=== PATIENT | female | born 1945 | race Caucasian/White ===

== ENCOUNTER 2018-01-07 13:55 | Outpatient (CLI) | payer MEDICARE | END 2018-01-07 13:56 | disposition home or self-care (01) | LOC: BICMAMMO 13:55 | PROVIDERS: ATTEND Obstetrics & Gynecology | DX: Z12.31 Encounter for screening mammogram for malignant neoplasm of breast (principal) | CPT/HCPCS: 77063; 77067 ==

== ENCOUNTER 2019-01-09 14:05 | Outpatient (CLI) | payer MEDICARE, OTHER ==
--- NOTE | 2019-01-09 15:08 | MMO ---
Bilateral MAMMO Bilat Screen [facility]. CLINICAL HISTORY: Patient is 73 years old and is seen for screening. The patient has no family history of breast cancer. The patient has no personal history of cancer. The patient has a history of right Excisional Biopsy in 1986 - benign. VIEWS: The views performed were: bilateral craniocaudal with tomosynthesis and bilateral mediolateral oblique with tomosynthesis. FILMS COMPARED: The present examination has been compared to prior imaging studies performed at [facility] on 12/11/2013, 12/13/2014, 01/01/2016, 01/04/2017 and 01/07/2018. MAMMOGRAM FINDINGS: The breasts are heterogeneously dense, which could obscure a lesion on mammography. There are stable benign appearing calcifications seen in both breasts. There are no suspicious masses, suspicious calcifications, or new areas of architectural distortion. IMPRESSION: THERE IS NO MAMMOGRAPHIC EVIDENCE OF MALIGNANCY. A ROUTINE FOLLOW-UP MAMMOGRAM IN 1 YEAR IS RECOMMENDED. THE RESULTS OF THIS EXAM WERE SENT TO THE PATIENT. ACR BI-RADS Category 2 - Benign finding MAMMOGRAPHY NOTE: 1. A negative mammogram report should not delay a biopsy if a dominant of clinically suspicious mass is present. 2. Approximately 10% to 15% of breast cancers are not detected by mammography. 3. Adenosis and dense breasts may obscure an underlying neoplasm.
== END 2019-01-09 14:06 | disposition home or self-care (01) ==
LOC: BICMAMMO 14:05
PROVIDERS: ATTEND Obstetrics & Gynecology
DX: Z12.31 Encounter for screening mammogram for malignant neoplasm of breast (principal)
CPT/HCPCS: 77063; 77067

== ENCOUNTER 2020-01-19 10:12 | Outpatient (CLI) | payer MEDICARE, OTHER ==
--- NOTE | 2020-01-19 10:50 | MMO ---
Bilateral MAMMO Bilat Screen [facility]. CLINICAL HISTORY: Patient is 74 years old and is seen for screening. The patient has no family history of breast cancer. The patient has no personal history of cancer. The patient has a history of right Excisional Biopsy in 1986 - benign. VIEWS: The views performed were: bilateral craniocaudal with tomosynthesis and bilateral mediolateral oblique with tomosynthesis. FILMS COMPARED: The present examination has been compared to prior imaging studies performed at [facility] on 01/01/2016, 01/04/2017, 01/07/2018 and 01/09/2019. This study has been interpreted with the assistance of computer-aided detection. MAMMOGRAM FINDINGS: The breasts are heterogeneously dense, which could obscure a lesion on mammography. Benign calcifications are noted bilaterally. There are no suspicious masses, suspicious calcifications, or new areas of architectural distortion. IMPRESSION: THERE IS NO MAMMOGRAPHIC EVIDENCE OF MALIGNANCY. A ROUTINE FOLLOW-UP MAMMOGRAM IN 1 YEAR IS RECOMMENDED. THE RESULTS OF THIS EXAM WERE SENT TO THE PATIENT. ACR BI-RADS Category 2 - Benign finding MAMMOGRAPHY NOTE: 1. A negative mammogram report should not delay a biopsy if a dominant of clinically suspicious mass is present. 2. Approximately 10% to 15% of breast cancers are not detected by mammography. 3. Adenosis and dense breasts may obscure an underlying neoplasm. Reported by: ALEKSEY KAT MD Electonically Signed: [id number]
== END 2020-01-19 10:13 | disposition home or self-care (01) ==
LOC: BICMAMMO 10:12
PROVIDERS: ATTEND Obstetrics & Gynecology
DX: Z12.31 Encounter for screening mammogram for malignant neoplasm of breast (principal); Z91.89 Other specified personal risk factors, not elsewhere classified
CPT/HCPCS: 77063; 77067

== ENCOUNTER 2020-12-25 16:35 | Inpatient (IN) | payer MEDICARE, OTHER ==
[2020-12-25 20:15] LABS: Anion Gap 16 mmol/L (10-20); BUN (Urea Nitrogen) 39 mg/dL (9.8-20.1); Calc. Creatinine Clearance 0 mL/min (70-130); Calcium 10.6 mg/dL (7.8-10.44); Carbon Dioxide 17 mmol/L (23-31); Chloride 110 mmol/L (98-107); Glucose 67 mg/dL (83-110); Sodium 136 mmol/L (136-145)
[2020-12-25 20:19] LABS: Potassium 6.6 mmol/L (3.5-5.1)
[2020-12-25 21:14] VITALS: BMI 29.0
[2020-12-25] MEDS ORDERED: Dextrose 5% in Water 1,000 ML IV PRN (21:15)
[2020-12-25] MEDS ORDERED: Insulin Regular 300 UNITS/3 ML VIAL IVP SCH (21:15)
[2020-12-25] MEDS ORDERED: Furosemide 40 MG/4 ML VIAL SLOW IVP SCH (21:15)
[2020-12-25] MEDS ORDERED: Dextrose 10% in Water 1,000 ML IV SCH ×2 (21:15→21:22)
[2020-12-25] MEDS ORDERED: Dextrose 50% Abboject 50 ML SYRINGE SLOW IVP PRN (21:15)
[2020-12-26] MEDS ORDERED: Calcium Gluconate 4.6 MEQ in Sodium Chloride 0.9% 100 ML IVPB SCH (01:30)
[2020-12-26 01:43] LABS: Potassium 6.5 mmol/L (3.5-5.1)
[2020-12-26] MEDS ORDERED: Insulin Regular 300 UNITS/3 ML VIAL IVP SCH (02:45)
[2020-12-26] MEDS ORDERED: Albuterol Sulfate 2.5 mg/3 ml Neb NEB ONE (03:00)
[2020-12-26 04:24] LABS: SARS-CoV-2 PCR by NAA Not Detected (NotDetected)
[2020-12-26] MEDS ORDERED: ASCORBIC ACID PO SCH (09:00)
[2020-12-26] MEDS ORDERED: CRANBERRY PO SCH (09:00)
[2020-12-26] MEDS ORDERED: GLUCOSAMINE HCL 500 MG PO SCH (09:00)
[2020-12-26] MEDS: Carvedilol 25 MG TAB PO SCH ×2 (09:11→23:57)
[2020-12-26] MEDS: Calcium Carbonate 600 MG + Vit D TAB PO SCH (09:11)
[2020-12-26] MEDS: Gabapentin 300 MG CAP PO SCH ×2 (09:11→23:57)
[2020-12-26] MEDS: Folic Acid 1 MG TAB PO SCH (09:11)
[2020-12-26] MEDS: Ferrous Sulfate 325 MG TAB PO SCH (09:11)
[2020-12-26] MEDS: Multivitamin W/ Minerals 1 TAB PO SCH (09:12)
[2020-12-26] MEDS: Ascorbic Acid 500 mg Chewable Tablet PO SCH (09:12)
[2020-12-26] MEDS: Loratadine 10 MG TAB PO SCH (09:12)
[2020-12-26] MEDS: Icosapent Ethyl 1 GM CAPSULE PO SCH ×2 (09:14→23:57)
[2020-12-26] MEDS ORDERED: Sodium Bicarbonate 2.5 MEQ/5 ML VIAL IV SCH (09:45)
[2020-12-26 10:07] LABS: #Eosinphils 0.2 thou/uL (0.0-0.7); #Lymphocytes 2.1 thou/uL (1.20-3.40); #Monocytes 0.6 thou/uL (0.11-0.59); #Neutrophils 4.5 thou/uL (1.40-6.50); %Basophils 0.4 % (0.0-1.0); %Eosinophils 3.1 % (0.0-10.0); %Lymphocytes 28.2 % (21.0-51.0); %Monocytes 8.6 % (0.0-10.0); %Neutrophils 59.6 % (42.0-75.0); Hemoglobin 11.5 g/dL (12.0-16.0); Mean Corpuscular HGB CONC 33.7 g/dL (32.0-36.0); Mean Corpuscular Hemoglobin 33.2 pg (27.0-31.0); Mean Corpuscular Volume 98.4 fL (78.0-98.0); Mean Platelet Volume 7.3 fL (7.4-10.4); Platelet Count 216 thou/uL (130-400); RBC Distribution Width 11.9 % (11.5-14.5); Red Blood Cell (RBC) Count 3.47 mill/uL (4.20-5.40); White Blood Cell (WBC) Count 7.5 thou/uL (4.8-10.8)
[2020-12-26 10:34] LABS: Anion Gap 13 mmol/L (10-20); BUN (Urea Nitrogen) 39 mg/dL (9.8-20.1); Calc. Creatinine Clearance 31 mL/min (70-130); Calcium 10.5 mg/dL (7.8-10.44); Carbon Dioxide 19 mmol/L (23-31); Chloride 109 mmol/L (98-107); Glucose 103 mg/dL (83-110); Sodium 134 mmol/L (136-145)
[2020-12-26 10:42] LABS: Potassium 6.8 mmol/L (3.5-5.1)
[2020-12-26] MEDS: Sodium Bicarbonate 150 MEQ in Dextrose 5% in Water 1,000 ML IV SCH ×2 (11:40→23:45)
[2020-12-26 15:25] LABS: Anion Gap 13 mmol/L (10-20); BUN (Urea Nitrogen) 39 mg/dL (9.8-20.1); Calc. Creatinine Clearance 33 mL/min (70-130); Calcium 9.7 mg/dL (7.8-10.44); Carbon Dioxide 20 mmol/L (23-31); Chloride 106 mmol/L (98-107); Glucose 127 mg/dL (83-110); Potassium 6.4 mmol/L (3.5-5.1); Sodium 133 mmol/L (136-145)
[2020-12-26] MEDS ORDERED: Lidocaine 1% (PF) 30 ML VIAL ONE (19:14)
[2020-12-26] MEDS ORDERED: Atorvastatin Calcium 10 MG TAB PO SCH (21:00)
[2020-12-26] MEDS ORDERED: Atorvastatin Calcium 20 MG TAB PO SCH (21:00)
[2020-12-26 23:56] LABS: HBSAg Index 0.28 S/CO (0-0.99); Hep B Surf Ag Non-Reactive S/CO (NonReactive)
[2020-12-27] MEDS: Ascorbic Acid 500 mg Chewable Tablet PO SCH (08:27)
[2020-12-27] MEDS: Ferrous Sulfate 325 MG TAB PO SCH (08:27)
[2020-12-27] MEDS: Folic Acid 1 MG TAB PO SCH (08:27)
[2020-12-27] MEDS: Carvedilol 25 MG TAB PO SCH (08:27)
[2020-12-27] MEDS: Calcium Carbonate 600 MG + Vit D TAB PO SCH (08:27)
[2020-12-27] MEDS: Gabapentin 300 MG CAP PO SCH (08:27)
[2020-12-27] MEDS: Multivitamin W/ Minerals 1 TAB PO SCH (08:28)
[2020-12-27] MEDS: Loratadine 10 MG TAB PO SCH (08:28)
[2020-12-27 08:46] LABS: #Basophils 0.1 thou/uL (0.0-0.2); #Eosinphils 0.3 thou/uL (0.0-0.7); #Neutrophils 6.2 thou/uL (1.40-6.50); %Basophils 0.5 % (0.0-1.0); %Eosinophils 2.7 % (0.0-10.0); %Monocytes 10.3 % (0.0-10.0); %Neutrophils 65.5 % (42.0-75.0); Hemoglobin 11.3 g/dL (12.0-16.0); Mean Corpuscular HGB CONC 34.2 g/dL (32.0-36.0); Mean Corpuscular Hemoglobin 33.3 pg (27.0-31.0); Mean Corpuscular Volume 97.3 fL (78.0-98.0); Mean Platelet Volume 7.2 fL (7.4-10.4); Platelet Count 205 thou/uL (130-400); RBC Distribution Width 11.9 % (11.5-14.5); White Blood Cell (WBC) Count 9.5 thou/uL (4.8-10.8)
[2020-12-27 08:58] LABS: Anion Gap 16 mmol/L (10-20); BUN (Urea Nitrogen) 19 mg/dL (9.8-20.1); Calc. Creatinine Clearance 36 mL/min (70-130); Carbon Dioxide 26 mmol/L (23-31); Chloride 101 mmol/L (98-107); Glucose 140 mg/dL (83-110); Potassium 4.9 mmol/L (3.5-5.1); Sodium 138 mmol/L (136-145)
[2020-12-27] MEDS: Icosapent Ethyl 1 GM CAPSULE PO SCH (09:15)
[2020-12-27] MEDS ORDERED: Acetaminophen 325 MG/10.15 ML UDCUP PO PRN (10:58)
[2020-12-27] MEDS ORDERED: Acetaminophen 650 MG/20.3 ML UDCUP PO PRN (11:07)
[2020-12-27] MEDS ORDERED: Acetaminophen 650 MG/20.3 ML UDCUP PO SCH (11:15)
[2020-12-27] MEDS ORDERED: HumaLOG 300 UNITS/3 ML VIAL SC PRN (11:30)
[2020-12-27 15:53] VITALS: BP 158/74; TEMP 97.8
== END 2020-12-27 18:07 | disposition home or self-care (01) | DRG 641 ==
LOC: 2NO 16:35
PROVIDERS: ADMIT Student in an Organized Health Care Education/Training Program; ATTEND Internal Medicine
PROC: 5A1D70Z Performance of Urinary Filtration, Intermittent, Less than 6 Hours Per Day (ICD-10-PCS; principal; 2020-12-26)
PROC: 06HY33Z Insertion of Infusion Device into Lower Vein, Percutaneous Approach (ICD-10-PCS; 2020-12-26)
DX: E87.5 Hyperkalemia (principal); N18.4 Chronic kidney disease, stage 4 (severe); N17.9 Acute kidney failure, unspecified; E87.1 Hypo-osmolality and hyponatremia; E78.5 Hyperlipidemia, unspecified; I12.9 Hypertensive chronic kidney disease with stage 1 through stage 4 chronic kidney disease, or unspecified chronic kidney disease; E11.22 Type 2 diabetes mellitus with diabetic chronic kidney disease; E78.2 Mixed hyperlipidemia; M10.9 Gout, unspecified; E66.9 Obesity, unspecified; K21.9 Gastro-esophageal reflux disease without esophagitis; T50.0X5A Adverse effect of mineralocorticoids and their antagonists, initial encounter; I25.10 Atherosclerotic heart disease of native coronary artery without angina pectoris; T36.8X5A Adverse effect of other systemic antibiotics, initial encounter; E87.2 Acidosis; Z79.899 Other long term (current) drug therapy; Z82.49 Family history of ischemic heart disease and other diseases of the circulatory system; Z98.49 Cataract extraction status, unspecified eye; Z68.29 Body mass index [BMI] 29.0-29.9, adult; Z88.5 Allergy status to narcotic agent; Z79.84 Long term (current) use of oral hypoglycemic drugs; Z90.710 Acquired absence of both cervix and uterus; Z90.49 Acquired absence of other specified parts of digestive tract
CPT/HCPCS: 36415; 36416; 70450; 80048; 80053; 80061; 83036; 85025; 87340; 87635; 90935; 93005; 93010; G0257; J1815; J1940; J2001; J3490; J7070; U0003; U0005

== ENCOUNTER 2021-01-21 15:27 | Outpatient (CLI) | payer MEDICARE, OTHER | END 2021-01-21 15:28 | disposition home or self-care (01) | LOC: BICMAMMO 15:27 | PROVIDERS: ATTEND Obstetrics & Gynecology | DX: Z12.31 Encounter for screening mammogram for malignant neoplasm of breast (principal); Z91.89 Other specified personal risk factors, not elsewhere classified | CPT/HCPCS: 77063; 77067 ==

== ENCOUNTER 2022-01-23 14:05 | Outpatient (CLI) | payer MEDICARE, OTHER | END 2022-01-23 14:06 | disposition home or self-care (01) | LOC: BICMAMMO 14:05 | PROVIDERS: ATTEND Internal Medicine | DX: Z12.31 Encounter for screening mammogram for malignant neoplasm of breast (principal) | CPT/HCPCS: 77063; 77067 ==

== ENCOUNTER 2023-05-06 14:31 | Outpatient (CLI) | payer MEDICARE, OTHER | END 2023-05-06 14:32 | disposition home or self-care (01) | LOC: BICMAMMO 14:31 | PROVIDERS: ATTEND Obstetrics & Gynecology | DX: Z12.31 Encounter for screening mammogram for malignant neoplasm of breast (principal); Z91.89 Other specified personal risk factors, not elsewhere classified | CPT/HCPCS: 77063; 77067 ==

== ENCOUNTER 2024-09-22 18:11 | Emergency (ER) | payer MEDICARE, OTHER ==
[2024-09-22 19:36] LABS: Bacteria/HPF 2+ HPF (None Seen); Bilirubin Negative (Negative); Blood, Urine Negative (Negative); CAUTI Indications for Culture Alt mental st,lethar; Clarity Clear (Clear); Glucose, Urine (Dipstick) 50 mg/dL (Negative); Ketone, Urine Negative (Negative); Leukocyte 250 Leu/uL (Negative); Nitrite Negative (Negative); Protein, Urine (Dipstick) Negative (Neg-Trace); RBC/HPF 0-3 HPF (0-3); Specific Gravity, Urine 1.008 (1.002-1.036); Squamous Epithelial None Seen HPF (0-3); Urobilinogen Normal mg/dL (Less than 2); WBC/HPF 0-3 HPF (0-3); pH, Urine 6.5 (5.0-9.0)
[2024-09-22 19:37] LABS: Urine Culture Reflex No No
[2024-09-22 20:00] LABS: #Basophils Less than 0.03 10x3/uL (0.0-0.2); %Basophils 0.2 % (0.0-1.0); %Eosinophils 3.3 % (0.0-10.0); %Lymphocytes 25.9 % (21.0-51.0); %Monocytes 12.6 % (0.0-10.0); %Neutrophils 57.6 % (42.0-75.0); Hematocrit 25.9 % (36.0-47.0); Hemoglobin 8.5 g/dL (12.0-16.0); Mean Corpuscular HGB CONC 32.8 g/dL (32.0-36.0); Mean Corpuscular Hemoglobin 32.3 pg (27.0-31.0); Mean Corpuscular Volume 98.5 fL (78.0-98.0); Mean Platelet Volume 10.3 fL (7.4-10.4); Platelet Count 154 10x3/uL (130-400); RBC Distribution Width 14.5 % (11.5-14.5); Red Blood Cell (RBC) Count 2.63 mill/uL (4.20-5.40)
[2024-09-22 20:17] LABS: ALT (SGPT) 26 U/L (8-55); AST (SGOT) 26 U/L (5-34); Albumin 3.6 g/dL (3.4-4.8); Alkaline Phosphatase 125 U/L (40-110); Anion Gap 14 mmol/L (10-20); BUN (Urea Nitrogen) 59 mg/dL (9.8-20.1); Bilirubin, Total 0.3 mg/dL (0.2-1.2); Calc. Creatinine Clearance 0 mL/min (70-130); Calcium 9.8 mg/dL (7.8-10.44); Carbon Dioxide 24 mmol/L (23-31); Chloride 108 mmol/L (98-107); Estimated GFR 17; Glucose 85 mg/dL (83-110); Potassium 4.7 mmol/L (3.5-5.1); Protein, Total 6.6 g/dL (5.8-8.1); Sodium 141 mmol/L (136-145)
[2024-09-22 20:21] LABS: Troponin I Less than 0.010 ng/mL (< 0.028)
== END 2024-09-22 21:05 | disposition home or self-care (01) ==
LOC: ERS 18:11
DX: R42 Dizziness and giddiness (principal); D64.9 Anemia, unspecified; I12.9 Hypertensive chronic kidney disease with stage 1 through stage 4 chronic kidney disease, or unspecified chronic kidney disease; E11.22 Type 2 diabetes mellitus with diabetic chronic kidney disease; N18.9 Chronic kidney disease, unspecified; N17.9 Acute kidney failure, unspecified; E78.00 Pure hypercholesterolemia, unspecified; K21.9 Gastro-esophageal reflux disease without esophagitis; Z55.6 Problems related to health literacy; Z79.82 Long term (current) use of aspirin; Z79.899 Other long term (current) drug therapy
CPT/HCPCS: 36415; 71045; 80053; 81001; 83605; 83880; 84484; 85025; 93005; 94760

== ENCOUNTER 2025-05-11 14:04 | Outpatient (CLI) | payer MEDICARE, OTHER | END 2025-05-11 14:05 | disposition home or self-care (01) | LOC: BICMAMMO 14:04 | PROVIDERS: ATTEND Obstetrics & Gynecology | DX: Z12.31 Encounter for screening mammogram for malignant neoplasm of breast (principal); Z85.828 Personal history of other malignant neoplasm of skin; Z91.89 Other specified personal risk factors, not elsewhere classified | CPT/HCPCS: 77063; 77067 ==

== ENCOUNTER 2025-05-29 16:10 | Emergency (ER) | payer MEDICARE, OTHER | END 2025-05-29 18:25 | disposition home or self-care (01) | LOC: ERS 16:10 | DX: S80.12XA Contusion of left lower leg, initial encounter (principal); X58.XXXA Exposure to other specified factors, initial encounter; R22.42 Localized swelling, mass and lump, left lower limb ==